=== PATIENT | female | born 1990 ===

== ENCOUNTER 2021-01-23 03:49 | Emergency (ER) | payer SELFPAY ==
[~2021-01-23] VITALS: Ht 167.6 cm; Wt 136.1 kg
[2021-01-23 05:00] VITALS: BP 149/82
[2021-01-23] MEDS ORDERED: KETOROLAC TROMETH 60MG/2ML VIAL IM ONE (05:00)
== END 2021-01-23 07:10 | disposition home or self-care (01) ==
LOC: ER 03:49
DX: M54.16 Radiculopathy, lumbar region (principal); E66.9 Obesity, unspecified; Z68.42 Body mass index [BMI] 45.0-49.9, adult; Z88.1 Allergy status to other antibiotic agents; Z88.8 Allergy status to other drugs, medicaments and biological substances
CPT/HCPCS: 72131; 96372; 99284; J1885